=== PATIENT | female | born 1945 | race Caucasian/White ===

== ENCOUNTER 2018-12-11 13:34 | Inpatient (IN) ==
[2018-12-11] MEDS ORDERED: Gadolinium Contrast Agent (WT Based) IV PRN (18:15)
[2018-12-11] MEDS ORDERED: Isovue-370 500 ML BOTTLE IVP ONE ×2 (18:30→18:34)
--- NOTE | 2018-12-11 18:43 | Internal Med History&Physical ---
Date of Encounter: 12/12/18 Time of Encounter: 18:41 Internal Medicine - H&P: HPI Chief complaint: Transferred Admitted From: Long-term Nursing Facility Plans for Post Hospital Care: Transfer Correction Care History of present illness: Ms. 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 Patient was seen talking last around 6:30 in the morning by the nurse at [facility]. Around 11:00 patient was found unable to speak. CT did not show any hemorrhage but showed diffuse cerebral atrophy, chronic small vessel ischemic changes, large area of encephalomalacia in with right frontal and parietal lobes and left occipital lobe. Patient was out of TPA window. Tertiary stroke center was not called. She had a chest x-ray which was somewhat suspicion of pneumothorax but repeat x-ray did not demonstrate it. As per son patient did not have anything to eat since morning. Unclear whether she took her medication. He did not know her medications. No known allergy according to them. She was more or less bedbound due to left-sided paralysis from previous stroke which happened after neck vessels surgery in 2005. Patient was evaluated on the floor on transfer when she was completely altered and not arousable. Oxygen was put in with the mask. After about 15 minutes or so patient did become more arousable opening eyes spontaneously and somewhat able to follow command. History was obtained from family as well as Dr. Reynolds at [facility]. Patient would be transferred to [facility] for further care. Discussed with family about CODE STATUS. Previously she was full code however after discussion family decided not to do aggressive measures including chest compress or intubation and use other measures including BiPAP for respiratory distress but not intubate. Past Med Surg Social Fam HX - Past Medical History Medical history: CVA, diabetes, hyperlipidemia, hypertension, other Psychiatric history: depression - Past Surgical History Additional surgical history: Neck surgery for blocked artery - Social History Smoking Status: Never smoker Smokeless Tobacco Status: No Alcohol use: none Drug use: none Internal Medicine - H&P: Meds Amlodipine Besylate 10 mg PO DAILY 12/01/17 [History] Atorvastatin [Lipitor] 10 mg PO HS 12/01/17 [History] Cholecalciferol (Vitamin D3) [Vitamin D] 50,000 unit PO QMONTH 12/01/17 [History] Citalopram [CeleXA] 20 mg PO DAILY 12/01/17 [History] Clopidogrel [Plavix] 75 mg PO DAILY 12/01/17 [History] Cyanocobalamin (Vitamin B-12) [Vitamin B12] 1,000 mcg PO DAILY 12/01/17 [History] Ferrous Sulfate [Iron] 325 mg PO BID 12/01/17 [History] Gabapentin [Neurontin] 300 mg PO TID 12/01/17 [History] GlipiZIDE [Glipizide Xl] 5 mg PO DAILY 12/01/17 [History] Metoprolol [Lopressor] 50 mg PO BID 12/01/17 [History] metFORMIN [Glucophage] 500 mg PO BIDWM 12/01/17 [History] Acetaminophen [Tylenol] 650 mg PO Q6HR PRN 12/11/18 [History] Dextran 70/Hypromellose/Pf [Artificial Tears Drops] 1 each OP Q4H PRN 12/11/18 [History] MOM Conc [Milk of Magnesia Conc] 30 ml PO DAILY PRN 12/11/18 [History] Pantoprazole Sodium [Protonix] 20 mg PO DAILY 12/11/18 [History] Potassium Chloride [Klor-Con 10] 10 meq PO DAILY 12/11/18 [History] Allergy/AdvReac Type Severity Reaction Status Date / Time baclofen Allergy See Verified 12/11/18 20:05 Comments ROS unobtainable: due to mental status All Systems PM: A 10-system review of systems was performed and is negative for pertinent findings except as documented above in the HPI. - Constitutional Vitals: Temp Pulse Resp BP Pulse Ox 97.6 F 82 13 125/71 96 12/11/18 17:02 12/11/18 17:02 12/11/18 17:02 12/11/18 17:02 12/11/18 17:02 Exam: Constitutional: Vitals as noted. ENT : Oropharyngeal exam unremarkable. Rt neck scar, dry mucous membrane. Respiratory : coarse breath sound, No accessory muscle use. Cardiovascular : RRR, +S1, +S2. no murmur, gallop, rubs. No chest wall tenderness GI/Abdominal : Soft, Non-tender, Non-distended, no peritoneal signs. Musculoskeletal: Lt leg and arm spastic contracture, pulses palpable and symmetrical in UE/LE. Neurological: Initially not arousable but after putting on oxygen she became more awake. opened eye spontaneously, following commands somewhat. Lt LE and UE spastic. moving Rt hand able to squeeze hand on command. Skin: No skin rash, lesions or ulcers noted. Internal Med - H&P Results - Labs CBC & Chem 7: 12/12/18 06:28 12/12/18 04:59 - EKG Data -: EKG Interpreted by Myself (RBBB and LAFB with LVH signs) - Assessment and Plan (1) Altered mental state Current Visit: Yes Status: Acute Assessment and plan: Patient without hemorrhagic stroke on CT. Discussed case with neurology who recommended MRI and MRA along with rectal aspirin. Patient had a previous right neck surgery and unclear details about it would prevent getting MRI as per radiology. Labs were reviewed. UA without any signs of UTI. No indication for antibiotic for now. Monitor for fevers. We will get CTA head and neck along with CT chest given patient had abnormal ABG with hypoxia without significant acid-base disturbance. We will keep patient on high flow oxygen. We will consider antibiotic if any signs of infection. Patient on metformin at home for diabetes. Discussed possibility of TOMMIE with contrast. Family agreed to proceed. We will keep on IV fluids to avoid TOMMIE. Qualifiers: Altered mental status type: somnolence Qualified Code(s): R40.0 - Somnolence - Time Spent With Patient Total time spent is greater than 50% in coordination of care (as documented) at patient's floor/unit and/or counseling patient:
[2018-12-11] MEDS ORDERED: Naloxone 0.4 MG/ML INJ IVP PRN (18:46)
[2018-12-11 18:59] LABS: ABG Base Excess 4 mEq/L (-2 to 3); ABG HCO3 29 mEq/L (21-27); ABG Oxygen Saturation 86 % (95-98); ABG PCO2 43 mmHg (35-45); ABG PH 7.43 pH Units (7.32-7.45); ABG PO2 50 mmHg (85-104); ABG TCO2 30 mEq/L (20-26)
[2018-12-11] MEDS: Ringers Solution, Lactated 1,000 ML IVC SCH (21:29)
[2018-12-12] MEDS ORDERED: *HR* Metoprolol 5 MG/5 ML VIAL IVP ONE (02:18)
[2018-12-12 06:15] LABS: BUN/Creatinine Ratio 18 (6-26); Blood Urea Nitrogen 19 mg/dL (8-23); Calcium 9.7 mg/dL (8.6-10.3); Carbon Dioxide 26 mEq/L (23-29); Chloride 101 mEq/L (98-107); Glucose 228 mg/dL (70-105); Osmolality,Calculated 301 (280-300); Potassium 4.2 mEq/L (3.5-5.1); Sodium 141 mEq/L (136-145); eGFR For African Americans > 60 (> 60); eGFR For Non-African Americans 50 (> 60)
[2018-12-12] MEDS: Ampicillin/Sulbactam 1,500 MG in 0.9 % Sodium Chloride Mini Bag 100 ML IVPB SCH ×4 (06:21→22:48)
[2018-12-12 06:40] LABS: ABG Base Excess 2 mEq/L (-2 to 3); ABG HCO3 27 mEq/L (21-27); ABG Oxygen Saturation 97 % (95-98); ABG PCO2 42 mmHg (35-45); ABG PH 7.41 pH Units (7.32-7.45); ABG PO2 92 mmHg (85-104); ABG TCO2 28 mEq/L (20-26)
[2018-12-12 07:02] LABS: Basophils % 0.1 %; Eosinophils % 0.1 %; Hematocrit 45.3 % (35.3-44.9); Hemoglobin 14.8 g/dL (11.5-15.4); Immature Granulocytes % 0.6 % (0-4); Lymphocytes # 2.3 K/mcL (0.6-4.6); Lymphocytes % 13.3 %; Mean Corpuscular HGB Conc 32.7 g/dL (31.6-35.5); Mean Corpuscular Hemoglobin 30.3 pg (28.0-33.3); Mean Corpuscular Volume 92.8 fL (83.0-100.0); Mean Platelet Volume 10.3 fL (9.4-12.4); Monocytes % 5.5 %; Platelet Count 250 K/mcL (140-400); Red Blood Count 4.88 M/mcL (3.82-4.97); Red Cell Distribution Width 13.1 % (11.5-14.5); Segmented Neutrophils % 80.4 %; White Blood Count 17.2 K/mcL (4.3-11.1)
[2018-12-12 07:15] LABS: Neutrophils # 13.8 K/mcL (1.6-8.9)
--- NOTE | 2018-12-12 08:15 | Internal Med Progress Note ---
Hospitalist Progress Note - Encounter Date of Encounter: 12/12/18 Time of Encounter: 08:02 - Subjective Interval History: Patient seen and examined this morning at bedside. No acute overnight events. Patient had fevers overnight. Patient not alert and arousable only with pain. Not following commands unable to offer any complaints. Sinus tachycardia on phototypesetting equipment monitor. - Exam Vitals: Temp Pulse Resp BP Pulse Ox 100.2 F H 107 20 176/99 97 12/12/18 07:40 12/12/18 07:40 12/12/18 07:40 12/12/18 07:40 12/12/18 07:40 Exam: Constitutional: Vitals as noted. Respiratory : coarse breath sound, No accessory muscle use. Cardiovascular : tachycardic, +S1, +S2. no murmur, gallop, rubs. GI/Abdominal : Soft, Non-tender, Non-distended, no peritoneal signs. Musculoskeletal: Lt leg and arm spastic contracture, pulses palpable and symmetrical in UE/LE. Neurological: Arousable with pain and opening eyes spontaneously after, not fo llowing commands. Skin: No skin rash noted. - Assessment and Plan (1) Altered mental state Current Visit: Yes Status: Acute - Summary of Assessment and Plan Summary of Assessment and Plan: Assessment Acute Altered mental status Aphasia Aspiration pneumonia Chronic DM HTN HLD Large CVA with residual lt weakness Plan - Patient transferred consent for incision stroke. Found unresponsive with hypoxia. CT shows right lower lobe consolidation with possible aspiration pneumonia. Stared on Unasyn. ABG better. Will stop bipap and monitor oxygenation. - CT without any hemorrhagic stroke. Discussed case with neurology who recommended MRI and MRA however wtih previous right neck surgery and unclear details about it would prevent getting MRI as per radiology. - Had CTA of head neck without evidence of acute ischemic or hemorrhagic stroke. Has Rt carotid occlusion with extensive encephalomalacia. No stenois of cervical vasculature. - Neurology consulted. Recommendation appreciated - c/w IV fluids maintainence. Start sliding scale inulin and accucheck - Prognosis guarded. Will get swallow evaluation when becomes more alert. - Allow permissive HTN. Sinus tachy likely related to aspiration. However possible BB withdrawal. Start lopressor IV. Internal Medicine: Result - Labs CBC & Chem 7: 12/12/18 06:28 12/12/18 04:59 Labs: Short CBC 12/12/18 Range/Units 06:28 WBC 17.2 H D (4.3-11.1) K/mcL Hgb 14.8 (11.5-15.4) g/dL Hct 45.3 H (35.3-44.9) % Plt Count 250 (140-400) K/mcL Neutrophils # 13.8 H (1.6-8.9) K/mcL BMP 12/12/18 04:59 Sodium 141 Potassium 4.2 Chloride 101 Carbon Dioxide 26 BUN 19 Creatinine 1.07 Glucose 228 H Calcium 9.7 - ABG Interpretation ABG results: ABG ABG pH 7.41 pH Units (7.32-7.45) 12/12/18 06:37 ABG pCO2 42 mmHg (35-45) 12/12/18 06:37 ABG pO2 92 mmHg (85-104) 12/12/18 06:37 ABG O2 Saturation 97 % (95-98) 12/12/18 06:37 - Impressions Impressions Neck CTA 12/11/18 18:30 IMPRESSION: CT head: Extensive encephalomalacia within the right anterior circulation, with associated ex vacuo dilatation of the right lateral ventricle. Additional areas of encephalomalacia within left posterior temporal lobe, and left occipital lobe compatible with previous area of infarcts. Chronic lacunar infarcts within bilateral basal ganglia and bilateral cerebellum. No convincing CT evidence of acute infarct. No convincing CT evidence of acute intracranial hemorrhage. Moderate to severe ventricle dilatation is nonspecific but likely related to extensive multifocal areas of encephalomalacia. 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 Occlusion of the right middle cerebral artery, and right anterior cerebral artery. This corresponds with extensive area of encephalomalacia from previous infarct. This is likely a chronic finding. Moderate multifocal stenosis involving the left intracranial internal carotid artery, with [id number] multifocal stenosis involving the anterior cerebral artery on the left, left middle cerebral artery, and bilateral posterior cerebral arteries. No focal occlusion identified within the remainder of the intracranial vasculature. CTA neck No high-grade stenosis or focal occlusion involving the cervical vasculature. Evaluation of the right carotid bifurcation is limited due to extensive surgical clips. However, within this limitation, no focal occlusion or significant stenosis is suspected. D/ / 12/11/2018 20:33:32 Flo Ferrell MD / branden Interpreting Provider: Flo Ferrell MD Head CTA 12/11/18 18:34 IMPRESSION: CT head: Extensive encephalomalacia within the right anterior circulation, with associated ex vacuo dilatation of the right lateral ventricle. Additional areas of encephalomalacia within left posterior temporal lobe, and left occipital lobe compatible with previous area of infarcts. Chronic lacunar infarcts within bilateral basal ganglia and bilateral cerebellum. No convincing CT evidence of acute infarct. No convincing CT evidence of acute intracranial hemorrhage. Moderate to severe ventricle dilatation is nonspecific but likely related to extensive multifocal areas of encephalomalacia. 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 Occlusion of the right middle cerebral artery, and right anterior cerebral artery. This corresponds with extensive area of encephalomalacia from previous infarct. This is likely a chronic finding. Moderate multifocal stenosis involving the left intracranial internal carotid artery, with [id number] multifocal stenosis involving the anterior cerebral artery on the left, left middle cerebral artery, and bilateral posterior cerebral arteries. No focal occlusion identified within the remainder of the intracranial vasculature. CTA neck No high-grade stenosis or focal occlusion involving the cervical vasculature. Evaluation of the right carotid bifurcation is limited due to extensive surgical clips. However, within this limitation, no focal occlusion or significant stenosis is suspected. D/ / 12/11/2018 20:33:32 Flo Ferrell MD / branden Interpreting Provider: Flo Ferrell MD Chest CT 12/11/18 18:59 IMPRESSION: 1. Consolidation the right lower lobe with evidence for fluid within the right lower lobe bronchus and segmental branches 2. No pneumothorax 3. No pleural effusion D/ / Tu Cutler MD / Tu Cutler MD Interpreting Provider: Tu Cutler MD Consult Discharge Plan - Plan Referrals: Damaris Boudreaux MD [Primary Care Provider] - (1) Altered mental state Qualifiers: Altered mental status type: somnolence Qualified Code(s): R40.0 - Eliz
[2018-12-12] MEDS ORDERED: Dextrose Gel 15 GM/37.5 ML TUBE PO PRN ×2 (08:55)
[2018-12-12] MEDS ORDERED: D5% in Water 1,000 ML IVC PRN (08:55)
[2018-12-12] MEDS ORDERED: *HR* Dextrose 50 % in Water (Syg) 50 ML SYRINGE IVP PRN (08:55)
--- NOTE | 2018-12-12 09:52 | Neurology - Consult Note ---
<Davis David J - Last Filed: 12/12/18 16:28> Date of Encounter: 12/12/18 Time of Encounter: 09:42 Assessment and Plan (1) Aphasia due to acute stroke Current Visit: No Status: Acute Presents with a sudden onset of severe aphasia Patient's mental state is altered and she is unable to participate in exam CT of the head on 12/11/18 reveals no acute intracranial abnormality. Finding diffuse cerebral atrophy with chronic small vessel ischemic disease and a large area of encephalomalacia involving the right frontal and parietal lobes from p rior infarct. Additionally there is encephalomalacia involving the left occipital lobe and cerebellar hemispheric and from prior infarct. 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 There is moderate multifocal stenosis involving the left intracranial internal carotid artery and [id number] multifocal stenosis involving the anterior cerebral artery, left middle sternal artery and bilateral posterior cerebral arteries. The CT angiogram of the neck shows no high-grade stenosis or focal occlusion involving the cervical vasculature. Evaluation of the right carotid bifurcation is limited due to extensive surgical clips. Ultimately MRI of the brain would be beneficial for further evaluation of an acute CVA. Neurological exam is complicated by altered mental state however, she has chronic left hemiparesis S/P CVA in 2005. On exam today she is extremely somnolent and unable to follow commands. However, she will move her right arm against gravity to painful stimuli and will move her right leg in a horizontal plane painful stimuli. She has chronic contractures of the left hand and left foot. Of note she also has positive Babinski's bilaterally. PLAN: Unable to obtain MRI d/t vascular clipping in the Rt cervical carotid arteries Recommend repeating CT head in the a.m. Agree with EEG evaluation Recommend echocardiogram Continue Lipitor and add rectal aspirin Goal BP less than 160 Continue frequent neurological assessments as per stroke protocol (2) Altered mental state Current Visit: Yes Status: Acute Qualifiers: Altered mental status type: somnolence Qualified Code(s): R40.0 - Somnolence History of Present Illness Chief complaint: acute CVA HPI: Ms. Curry is a 73 year old female with a PMH of DM, HTN, CVA in with residual left-sided paralysis. Her last known well was approximately 6:30 AM yesterday morning. At around 11 AM she was found to be severely aphasic and unable to speak. Given these findings there is concern for CVA. A CT of the head did not show any acute intracranial hemorrhage, mass effect or midline shift revealed only chronic small vessel ischemic changes and a large area of encephalomalacia in the right frontal and parietal lobes and left occipital lobe. Unfortunately, she was outside of the TPA window time of arrival to the ED. At the time of my assessment this morning the patient is very somnolent and arousable only to painful stimuli. She remains unable to speak or engage in conversation and is unable to follow commands. There is no family at bedside at the moment. Given her symptoms are certainly concerning for an acute CVA. Neurology will continue to follow for evaluation of stroke. Of note, she does have service criteria times [address] of the chest suggest pneumonia. She is being managed per the primary team. Past Med Surg Social Fam HX - Past Medical History Medical history: CVA, diabetes, hyperlipidemia, hypertension, other Additional medical history: Depression. CAD. Anemia. Neuropathy. Vitamin D deficiency. Psychiatric history: depression - Past Surgical History Additional surgical history: Neck surgery for blocked artery - Social History Smoking Status: Never smoker Smokeless Tobacco Status: No Alcohol use: none Drug use: none Medications and Allergies Atorvastatin [Lipitor] 10 mg PO HS 12/01/17 [History] Cholecalciferol (Vitamin D3) [Vitamin D] 50,000 unit PO QWEEK 12/01/17 [History] Clopidogrel [Plavix] 75 mg PO DAILY 12/01/17 [History] Cyanocobalamin (Vitamin B-12) [Vitamin B12] 1,000 mcg PO DAILY 12/01/17 [History] Ferrous Sulfate [Iron] 325 mg PO BID 12/01/17 [History] Gabapentin [Neurontin] 300 mg PO TID 12/01/17 [History] Metoprolol [Lopressor] 50 mg PO BID 12/01/17 [History] metFORMIN [Glucophage] 500 mg PO BIDWM 12/01/17 [History] Acetaminophen [Tylenol] 650 mg PO Q6HR PRN 12/11/18 [History] Dextran 70/Hypromellose/Pf [Artificial Tears Drops] 1 each OP Q4H PRN 12/11/18 [History] MOM Conc [Milk of Magnesia Conc] 30 ml PO DAILY PRN 12/11/18 [History] Pantoprazole Sodium [Protonix] 20 mg PO DAILY 12/11/18 [History] Potassium Chloride [Klor-Con 10] 10 meq PO DAILY 12/11/18 [History] Amlodipine Besylate 10 mg PO DAILY 12/12/18 [History] Citalopram Hydrobromide [Citalopram HBr] 15 mg PO DAILY 12/12/18 [History] GlipiZIDE [Glucotrol] 5 mg PO BIDWM 12/12/18 [History] Allergy/AdvReac Type Severity Reaction Status Date / Time baclofen Allergy See Verified 12/11/18 20:05 Comments ROS unobtainable: due to mental status All Systems: The remainder of the systems were reviewed and are negative Physical Examination - Vital Signs Vital Signs: Initial Vital Signs Temp Pulse Resp BP Pulse Ox 97.6 F 82 13 125/71 96 12/11/18 17:02 12/11/18 17:02 12/11/18 17:02 12/11/18 17:02 12/11/18 17:02 - Exam Exam: Examination: Complicated by altered mental state General Examination: *CONSTITUTIONAL: Somnolent, no acute distress *GENERAL APPEARANCE OF PATIENT ill-appearing elderly female *EYES: pupils equal, round, reactive to light and accommodation, conjunctiva clear *CARDIOVASCULAR no peripheral edema, distal temperature normal, dorsalis pedis pulses normal. See vital signs Musculoskeletal: *GAIT AND STATION deferred *ASSESSMENT OF MUSCLE STRENGTH IN THE UPPER AND LOWER EXTREMITIES left- sided hemiparesis which is a chronic deficit from prior CVA in 2005. She will move RUE against gravity with painful stimulus, but her strength 3/5, she will move RLE in a horizontal plane with painful stimulus motor strength 2/5 *MUSCLE TONE IN THE UPPER AND LOWER EXTREMITIES normal. No abnormal movements, fasciculations or atrophy identified. Neurological: *ORIENTATION severely somnolent and arousable to painful stimuli only. *LANGUAGE FUNCTION severe expressive aphasia *CN II optic fundi were normal, no papilledema noted. *CN III,IV, pupils are 3 mm equally bilaterally, however the left pupil does not constrict to light or accommodation. Doll's eyes are intact, unable to assess extraocular movements *CN V shows normal sensation and jaw opens symmetrically. *CN VII shows normal facial movement symmetrically, upper and lower bilaterally. *REFLEXES: deep tendon reflexes were grade 1/4 in all muscle groups of the right arm and right leg, areflexic in the left arm and left leg in all muscle groups with positive Babinski's reflex on bilateral feet *CEREBELLAR TESTING normal finger to nose, heel/knee/cerda *PAIN LEVEL 0/10 Results - Laboratory Findings CBC and BMP: 12/12/18 06:28 12/12/18 04:59 Abnormal lab findings: Abnormal lab results WBC 17.2 K/mcL (4.3-11.1) H D 12/12/18 06:28 Hct 45.3 % (35.3-44.9) H 12/12/18 06:28 13.8 K/mcL (1.6-8.9) H 12/12/18 06:28 ABG pO2 50 mmHg (85-104) L* 12/11/18 18:47 ABG HCO3 29 mEq/L (21-27) H 12/11/18 18:47 ABG Total CO2 28 mEq/L (20-26) H 12/12/18 06:37 ABG O2 Saturation 86 % (95-98) L 12/11/18 18:47 ABG Base Excess 4 mEq/L (-2 to 3) H 12/11/18 18:47 Est GFR (Non-Af Amer) 50 (> 60) L 12/12/18 04:59 Glucose 228 mg/dL (70-105) H 12/12/18 04:59 POC Glucose 135 mg/dL (70-99) H 12/11/18 17:17 301 (280-300) H 12/12/18 04:59 - Diagnostic Findings Additional findings: CT/CT chest w con IMPRESSION: 1. Consolidation the right lower lobe with evidence for fluid within the right lower lobe bronchus and segmental branches 2. No pneumothorax 3. No pleural effusion CT/CT angio head IMPRESSION: CT head: Extensive encephalomalacia within the right anterior circulation, with associated ex vacuo dilatation of the right lateral ventricle. Additional areas of encephalomalacia within left posterior temporal lobe, and left occipital lobe compatible with previous area of infarcts. Chronic lacunar infarcts within bilateral basal ganglia and bilateral cerebellum. No convincing CT evidence of acute infarct. No convincing CT evidence of acute intracranial hemorrhage. Moderate to severe ventricle dilatation is nonspecific but likely related to extensive multifocal areas of encephalomalacia. 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 Occlusion of the right middle cerebral artery, and right anterior cerebral artery. This corresponds with extensive area of encephalomalacia from previous infarct. This is likely a chronic finding. Moderate multifocal stenosis involving the left intracranial internal carotid artery, with [id number] multifocal stenosis involving the anterior cerebral artery on the left, left middle cerebral artery, and bilateral posterior cerebral arteries. No focal occlusion identified within the remainder of the intracranial vasculature. CTA neck No high-grade stenosis or focal occlusion involving the cervical vasculature. Evaluation of the right carotid bifurcation is limited due to extensive surgical clips. However, within this limitation, no focal occlusion or significant stenosis is suspected. Consult Discharge Plan - Plan Referrals: Damaris Boudreaux MD [Primary Care Provider] - <Sharon Wilkinson I - Last Filed: 12/12/18 16:48> Date of Encounter: 12/12/18 Assessment and Plan (1) Aphasia due to acute stroke Current Visit: No Status: Acute I have personally performed a face to face diagnostic evaluation, including HPI, EXAM, which is included in the Assesment and plan, which was discussed with Davis David CNP, I agree with the above outlined documentation. Should with a history of previous stroke with significant encephalomalacia in her right hemisphere Now with unresponsiveness, suspect she may have a new infarct perhaps could be in the brain this time but at the same time she do not have much cortical reserve and for brain is already changed from her previous right MCA infarct, Currently she is on antibiotics as well as on fluids, suggest conservative treatment considering her breathing seems to be significantly affected. Patient is currently DNR CCA, keep patient comfortable Continue on rectal aspirin continue blood pressure monitoring keep it stable Discussed with the family present at bedside , informed Prognosis is not good Sharon Wilkinson MD. NeurologyI (2) Altered mental state Current Visit: Yes Status: Acute Qualifiers: Altered mental status type: somnolence Qualified Code(s): R40.0 - Somnolence History of Present Illness HPI: Ms. Curry is a 73 year old female All Systems: The remainder of the systems were reviewed and are negative Physical Examination - Vital Signs Vital Signs: Initial Vital Signs Temp Pulse Resp BP Pulse Ox 97.6 F 82 13 125/71 96 12/11/18 17:02 12/11/18 17:02 12/11/18 17:02 12/11/18 17:02 12/11/18 17:02 Results - Laboratory Findings CBC and BMP: 12/12/18 06:28 12/12/18 04:59 Abnormal lab findings: Abnormal lab results WBC 17.2 K/mcL (4.3-11.1) H D 12/12/18 06:28 Hct 45.3 % (35.3-44.9) H 12/12/18 06:28 13.8 K/mcL (1.6-8.9) H 12/12/18 06:28 ABG pO2 50 mmHg (85-104) L* 12/11/18 18:47 ABG HCO3 29 mEq/L (21-27) H 12/11/18 18:47 ABG Total CO2 28 mEq/L (20-26) H 12/12/18 06:37 ABG O2 Saturation 86 % (95-98) L 12/11/18 18:47 ABG Base Excess 4 mEq/L (-2 to 3) H 12/11/18 18:47 Est GFR (Non-Af Amer) 50 (> 60) L 12/12/18 04:59 Glucose 228 mg/dL (70-105) H 12/12/18 04:59 POC Glucose 241 mg/dL (70-99) H 12/12/18 05:04 301 (280-300) H 12/12/18 04:59
[2018-12-12] MEDS: *HR* Metoprolol 5 MG/5 ML VIAL IVP SCH ×3 (11:58→22:49)
[2018-12-12] MEDS ORDERED: Ampicillin/Sulbactam 1,500 MG in 0.9 % Sodium Chloride Mini Bag 100 ML IVPB SCH (12:00)
[2018-12-12] MEDS: Insulin LISPRO 300 UNITS/3 ML VIAL SQ SCH ×2 (12:37→17:42)
[2018-12-12] MEDS: Ringers Solution, Lactated 1,000 ML IVC SCH (12:43)
--- NOTE | 2018-12-12 16:40 | Electrocardiograph Report ---
[address] [place] [address] Test Date: 2018-12-12 Pat Name: Dora Curry Department: 110 Room: 2N15 Gender: F Contact [employer] Helper: : 1945 Requested By: Walt Hamilton Order Number: [id number] Reading MD: Surekha Mendez Measurements Intervals [place]bler Rate: 105 P: 55 ID: [id number] QRS: -74 QRSD: 117 T: 64 QT: 372 QTc: 433 Interpretive Statements SINUS TACHYCARDIA INCOMPLETE RIGHT BUNDLE BRANCH BLOCK LEFT ANTERIOR FASCICULAR BLOCK POSSIBLE LEFT VENTRICULAR HYPERTROPHY Electronically Signed On 12-12-2018 16:39:07 EDT by Surekha Mendez
[2018-12-12] MEDS ORDERED: Ondansetron 4 MG/2 ML VIAL IVP PRN (20:31)
[2018-12-13] MEDS: Insulin LISPRO 300 UNITS/3 ML VIAL SQ SCH ×4 (00:36→18:42)
[2018-12-13 05:31] LABS: Basophils % 0.3 %; Eosinophils % 0.1 %; Hematocrit 44.6 % (35.3-44.9); Hemoglobin 14.4 g/dL (11.5-15.4); Immature Granulocytes % 0.7 % (0-4); Lymphocytes % 21.4 %; Mean Corpuscular HGB Conc 32.3 g/dL (31.6-35.5); Mean Corpuscular Hemoglobin 30.6 pg (28.0-33.3); Mean Corpuscular Volume 94.9 fL (83.0-100.0); Mean Platelet Volume 9.5 fL (9.4-12.4); Monocytes # 1.1 K/mcL (0.0-1.3); Monocytes % 7.7 %; Neutrophils # 9.7 K/mcL (1.6-8.9); Platelet Count 297 K/mcL (140-400); Segmented Neutrophils % 69.8 %; White Blood Count 13.9 K/mcL (4.3-11.1)
[2018-12-13 05:44] LABS: BUN/Creatinine Ratio 17 (6-26); Blood Urea Nitrogen 16 mg/dL (8-23); Carbon Dioxide 25 mEq/L (23-29); Chloride 105 mEq/L (98-107); Glucose 191 mg/dL (70-105); Osmolality,Calculated 302 (280-300); Potassium 3.2 mEq/L (3.5-5.1); Sodium 143 mEq/L (136-145); eGFR For African Americans > 60 (> 60); eGFR For Non-African Americans 60 (> 60)
[2018-12-13] MEDS: Ampicillin/Sulbactam 1,500 MG in 0.9 % Sodium Chloride Mini Bag 100 ML IVPB SCH ×3 (06:28→18:41)
[2018-12-13] MEDS: *HR* Metoprolol 5 MG/5 ML VIAL IVP SCH ×3 (06:28→18:15)
--- NOTE | 2018-12-13 13:03 | Neurology Progress Note ---
<Davis David - Last Filed: 12/13/18 13:00> Date of Encounter: 12/13/18 Time of Encounter: 13:00 Assessment and Plan (1) Aphasia due to acute stroke Current Visit: No Status: Acute Presents with sudden onset of severe aphasia and decreased level of consciousness. Clinical, she has not had any noticeable improvement in her symptoms overnight. CT of the head yesterday negative for an acute infarct. EEG did not identify any seizure activity. Today she continues to be lethargic, severely aphasic and in respiratory distress requiring high oxygen support. As noted previously, she has had a rather large infarct in the right hemisphere and the CT does reveal significant encephalomalacia. A repeat CT of the head was completed this morning which did not identify any acute pathology revealing only chronic findings. Given the respiratory failure with aspiration PNA, coupled with the sever aphasia, increase oral secretions and suspicion for aspiration her prognosis is poor overall. This has been discussed with the family. Recommendations are to continue with neurological assessments per protocol, continue rectal aspirin daily, keep SBP less than 160. Recommending palliative care consultation. Neurology will continue to follow. (2) Altered mental state Current Visit: Yes Status: Acute Qualifiers: Altered mental status type: somnolence Qualified Code(s): R40.0 - Somnolence Subjective Principal diagnosis: Aphagia due to acute stroke Interval history: Patient was seen in follow-up at bedside with concerns for an acute CVA. She has a history of previous stroke with significant encephalomalacia in the right hemisphere. On admission she was totally aphasic and unresponsive and there is concerns for a new infarct. Also, she was found to have aspiration pneumonia and sepsis for which she is being treated by the primary team. The chart was reviewed today, the patient was seen and examined at the bedside. Clinically, she has not had any noticeable improvement overnight and this morning she continues to be somnolent and difficult to arouse. However, she was somewhat arousable with noxious stimulus. Nevertheless she continues to be severely aphasic and does not follow commands. Her case was discussed with her son and [id number] as well as other family were present and they were informed that in all likelihood the prognosis is not favorable. A repeat CT of the head was obtained today which did not identify any acute infarct or acute intracranial abnormalities. Plan of care at this time includes continuing with rectal aspirin, close blood pressure monitoring and close monitoring of the patient's neurological status. Plan of care discussed with the family and they are in agreement. They do not have any further questions regarding her care. Objective - Constitutional Vitals: Temp Pulse Resp BP Pulse Ox 97.0 F L 77 26 170/95 88 12/13/18 11:51 12/13/18 11:51 12/13/18 11:51 12/13/18 11:51 12/13/18 11:51 Exam: Examination: Severely limited by patient's altered mental state General Examination: *CONSTITUTIONAL: Continues to be somnolent, no acute distress *GENERAL APPEARANCE OF PATIENT overall she is an ill appearing elderly female *EYES: pupils equal, round, reactive to light and accommodation, conjunctiva clear *CARDIOVASCULAR: no peripheral edema, distal temperature normal, dorsalis pedis pulses normal. Refer to vital signs * MUSCULOSKELETAL: *GAIT AND STATION: Deferred *ASSESSMENT OF MUSCLE STRENGTH IN THE UPPER AND LOWER EXTREMITIES chronic left-sided hemiparesis from prior CVA. She will move RUE and RLE to noxious stimulus but is only able to move each limb in a horizontal plane with motor strength of 2/5 *MUSCLE TONE IN THE UPPER AND LOWER EXTREMITIES normal. No abnormal movements, fasciculations or atrophy identified. Neurological: *ORIENTATION somnolent, disoriented to person, place, time, situation *LANGUAGE AND FUNCTION severe aphasia *ATTENTION AND CONCENTRATION DOES not follow commands and is not attentive. I am unable to reorient the patient *LANGUAGE FUNCTION and significant severe aphasia *MENTAL attention span and concentration are poor *CN II optic fundi were normal, no papilledema noted. *CN III,IV, PERRLA, doll's eyes intact *CN XI normal strength in the sternocleidomastoid muscles, when awake she will follow me throughout the room by turning her head from [id number] *SENSORY EXAMINATION appears to be aware of painful stimuli to the right upper and lower extremity she will move them with painful stimulus. Sensation appears to be diminished in the left side which is likely a chronic finding *REFLEXES: DTRs were grade 1/4 in all muscle groups in the right arm and right leg but areflexic in the left arm and left leg in all muscle groups. She is positive for bilateral Babinski's Results - Laboratory Findings CBC and BMP: 12/13/18 05:09 12/13/18 05:09 Abnormal lab findings: Abnormal lab results WBC 13.9 K/mcL (4.3-11.1) H 12/13/18 05:09 Hct 45.3 % (35.3-44.9) H 12/12/18 06:28 9.7 K/mcL (1.6-8.9) H 12/13/18 05:09 ABG pO2 50 mmHg (85-104) L* 12/11/18 18:47 ABG HCO3 29 mEq/L (21-27) H 12/11/18 18:47 ABG Total CO2 28 mEq/L (20-26) H 12/12/18 06:37 ABG O2 Saturation 86 % (95-98) L 12/11/18 18:47 ABG Base Excess 4 mEq/L (-2 to 3) H 12/11/18 18:47 Potassium 3.2 mEq/L (3.5-5.1) L 12/13/18 05:09 Est GFR (Non-Af Amer) 50 (> 60) L 12/12/18 04:59 Glucose 191 mg/dL (70-105) H 12/13/18 05:09 POC Glucose 195 mg/dL (70-99) H 12/13/18 11:57 302 (280-300) H 12/13/18 05:09 Consult Discharge Plan - Plan Referrals: Damaris Boudreaux MD [Primary Care Provider] - <Sharon Wilkinson I - Last Filed: 12/13/18 16:34> Date of Encounter: 12/13/18 Assessment and Plan (1) Aphasia due to acute stroke Current Visit: No Status: Acute Patient remain unresponsive though today she does open the eyes briefly on stimuli but remains unresponsive and no purposeful movement noted Repeat CT scan did not reveal any new abnormality Concerning overall suggest supportive care Discussed and explained to the family that her prognosis is poor Sharon Wilkinson MD (2) Altered mental state Current Visit: Yes Status: Acute Qualifiers: Qualified Code(s): R40.0 - Somnolence Objective - Constitutional Vitals: Temp Pulse Resp BP Pulse Ox 98.1 F 97 26 197/110 98 12/13/18 15:50 12/13/18 15:50 12/13/18 15:50 12/13/18 15:50 12/13/18 15:50 Results - Laboratory Findings CBC and BMP: 12/13/18 05:09 12/13/18 05:09 Abnormal lab findings: Abnormal lab results WBC 13.9 K/mcL (4.3-11.1) H 12/13/18 05:09 Hct 45.3 % (35.3-44.9) H 12/12/18 06:28 9.7 K/mcL (1.6-8.9) H 12/13/18 05:09 ABG pO2 50 mmHg (85-104) L* 12/11/18 18:47 ABG HCO3 29 mEq/L (21-27) H 12/11/18 18:47 ABG Total CO2 28 mEq/L (20-26) H 12/12/18 06:37 ABG O2 Saturation 86 % (95-98) L 12/11/18 18:47 ABG Base Excess 4 mEq/L (-2 to 3) H 12/11/18 18:47 Potassium 3.2 mEq/L (3.5-5.1) L 12/13/18 05:09 Est GFR (Non-Af Amer) 50 (> 60) L 12/12/18 04:59 Glucose 191 mg/dL (70-105) H 12/13/18 05:09 POC Glucose 195 mg/dL (70-99) H 12/13/18 11:57 302 (280-300) H 12/13/18 05:09
--- NOTE | 2018-12-13 13:49 | Palliative - Consult Note ---
Date of Encounter: 12/15/18 Time of Encounter: 13:30 - Assessment and Plan (1) Goals of care, counseling/discussion Current Visit: Yes Status: Acute Assessment and plan: 40 minutes meeting with pt's son Lyssa (MPOA), [id number], grand-son. Discussed current medical condition, trajectory of illness, overall poor prognosis. Discussed that pt is in respiratory failure with aspiration PNA, severe aphasia, increase oral secretions and suspicion for aspiration, her prognosis prognosis is hours to days. Family was appropriately emotional. Son would like all to be done except intubation, per patient's own wishes. Explained that CPR will be appropriopriate as it will result in added suffering and prolonging the dying process. Son was not able to give a final decision about CPR. Advised Lyssa to notify all family of pt's condition as pt has 6 children. Plan: Patient is DO NOT INTUBATE, but remains FULL CODE. Recommend to address code status further as patient appears more imminent Will order some comfort medication to be used when patient is in distress and family agreeable. Secretions: Glycopyrrolate 0.2mg q8hr prn Morphine SL 5 mg q1 hr prn for dyspnea Anxiety: Ativan 1mg q1 hr prn (2) Dyspnea Current Visit: Yes Status: Acute Assessment and plan: Patient shows signs of aspiration, with gurgling sounds, tachypnea and accessory muscle use on vanc and zosyn on nonrebreather mask Family still hopeful and wants to continue all aggressive treatment, except intubation. Morphine and Ativan prn ordered for respiratory distress, once family agreeable. Per patient's known wishes, DO NOT INTUBATE. Qualifiers: Dyspnea type: acute respiratory distress Qualified Code(s): R06.03 - Acute respiratory distress (3) Copious oral secretions Current Visit: Yes Status: Acute Assessment and plan: Glycopyrrolate 0.2mg prn for secretions (4) Palliative care encounter Current Visit: Yes Status: Acute (5) Aphasia due to acute stroke Current Visit: No Status: Acute (6) Altered mental state Current Visit: Yes Status: Acute Qualifiers: Altered mental status type: somnolence Qualified Code(s): R40.0 - Somnolence Palliative-CN HPI - Data of Consult Patient: new to practice Consult date: 12/13/18 Requesting Physician: Jewel Wright Primary Care Provider: Damaris Boudreaux MD - Consult Narrative Palliative Care/Comfort Measures: Palliative care Reason for consult: Goals of care History of present illness: Ms. 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 Patient is [facility] resident, where she was found unable to speak 3 and half hours after the last know normal time. CT head did not show any hemorrhage but showed diffuse cerebral atrophy, chronic small vessel ischemic changes, large area of encephalomalacia in with right frontal and parietal lobes and left occipital lobe. Patient was out of TPA window. Patient was admitted for management of stroke. Patient is worsening, continues to be lethargic, severely aphasic and in respiratory distress requiring high oxygen support. Palliative care consult for GOC discussion. Today pt was lethargic, on non-rebreather mask, tachypneic and using accessory muscles. Opens eyes transiently to verbal stimuli. At her baseline, pt is b edbound due to left-sided paralysis from previous stroke which happened after neck vessels surgery in 2005. CC: Jewel Wright - Time Spent with Patient Time: Total time spent is greater than 50% in coordination of care (as documented) at patient's floor/unit and/or counseling patient: Time with patient: 75 minutes Past Med Surg Social Fam HX - Past Medical History Medical history: CVA, diabetes, hyperlipidemia, hypertension, other Additional medical history: Depression. CAD. Anemia. Neuropathy. Vitamin D deficiency. Psychiatric history: depression - Past Surgical History Additional surgical history: Neck surgery for blocked artery - Social History Smoking Status: Never smoker Smokeless Tobacco Status: No Alcohol use: none Drug use: none Medications and Allergies Atorvastatin [Lipitor] 10 mg PO HS 12/01/17 [History] Cholecalciferol (Vitamin D3) [Vitamin D] 50,000 unit PO QWEEK 12/01/17 [History] Clopidogrel [Plavix] 75 mg PO DAILY 12/01/17 [History] Cyanocobalamin (Vitamin B-12) [Vitamin B12] 1,000 mcg PO DAILY 12/01/17 [History] Ferrous Sulfate [Iron] 325 mg PO BID 12/01/17 [History] Gabapentin [Neurontin] 300 mg PO TID 12/01/17 [History] Metoprolol [Lopressor] 50 mg PO BID 12/01/17 [History] metFORMIN [Glucophage] 500 mg PO BIDWM 12/01/17 [History] Acetaminophen [Tylenol] 650 mg PO Q6HR PRN 12/11/18 [History] Dextran 70/Hypromellose/Pf [Artificial Tears Drops] 1 each OP Q4H PRN 12/11/18 [History] MOM Conc [Milk of Magnesia Conc] 30 ml PO DAILY PRN 12/11/18 [History] Pantoprazole Sodium [Protonix] 20 mg PO DAILY 12/11/18 [History] Potassium Chloride [Klor-Con 10] 10 meq PO DAILY 12/11/18 [History] Amlodipine Besylate 10 mg PO DAILY 12/12/18 [History] Citalopram Hydrobromide [Citalopram HBr] 15 mg PO DAILY 12/12/18 [History] GlipiZIDE [Glucotrol] 5 mg PO BIDWM 12/12/18 [History] Allergy/AdvReac Type Severity Reaction Status Date / Time baclofen Allergy See Verified 12/11/18 20:05 Comments ROS unobtainable: due to mental status Palliative Care-Exam - Constitutional Vitals: Temp Pulse Resp BP Pulse Ox 97.0 F L 77 26 170/95 88 12/13/18 11:51 12/13/18 11:51 12/13/18 11:51 12/13/18 11:51 12/13/18 11:51 Exam: Constitutional: lethargic, in moderate distress ENT : Oropharyngeal exam unremarkable. Rt neck scar, dry mucous membrane. Respiratory : coarse breath sound, accessory muscle use. Cardiovascular : RRR, +S1, +S2. no murmur, gallop, rubs. No chest wall tenderness GI/Abdominal : Soft, Non-tender, Non-distended, no peritoneal signs. Musculoskeletal: Lt leg and arm spastic contracture, pulses palpable and symmetrical in UE/LE. Neurological: opened eye spontaneously, not following commands. Lt LE and UE spastic. Skin: No skin rash, lesions or ulcers noted. Internal Medicine - CN: Reslt - Labs CBC & Chem 7: 12/13/18 05:09 12/13/18 05:09 Labs: Short CBC 12/13/18 Range/Units 05:09 WBC 13.9 H (4.3-11.1) K/mcL Hgb 14.4 (11.5-15.4) g/dL Hct 44.6 (35.3-44.9) % Plt Count 297 (140-400) K/mcL Neutrophils # 9.7 H (1.6-8.9) K/mcL BMP 12/13/18 05:09 Sodium 143 Potassium 3.2 L Chloride 105 Carbon Dioxide 25 BUN 16 Creatinine 0.92 Glucose 191 H Calcium 10.0 - ABG Interpretation ABG results: ABG ABG pH 7.41 pH Units (7.32-7.45) 12/12/18 06:37 ABG pCO2 42 mmHg (35-45) 12/12/18 06:37 ABG pO2 92 mmHg (85-104) 12/12/18 06:37 ABG O2 Saturation 97 % (95-98) 12/12/18 06:37 - Impressions Impressions Head CT 12/13/18 09:00 IMPRESSION: 1. Stable CT scan of the brain with no acute intracranial abnormality. D/ / Luis Garcia MD / Luis Garcia MD Interpreting Provider: Luis Garcia MD Consult Discharge Plan - Plan Referrals: Damaris Boudreaux MD [Primary Care Provider] - Palliative Quality Palliative Quality: Screen for Code Status: Yes, Screen for Goals of Care: Yes, Screen for Pain: Yes, If Pain Regimen Started, Initiate Bowel Regimen: NA, Screen for Nausea/Vomitting: Yes Code Status: 12/11/18 18:46 Resuscitation Status: Active [RES] Routine Comment: Resuscitation Status: [id number]
[2018-12-13] MEDS: Potassium Chloride 20 MEQ in D5% in Water 1,000 ML IVC SCH (15:10)
--- NOTE | 2018-12-13 16:57 | Internal Med Progress Note ---
Hospitalist Progress Note - Encounter Date of Encounter: 12/13/18 Time of Encounter: 09:03 - Subjective Interval History: Patient seen at bedside. Worsening respiratory status. Discussed with the family at bedside regarding the patient's prognosis. Patient unable to provide any specific subjective assessment. - Exam Vitals: Temp Pulse Resp BP Pulse Ox 98.1 F 97 26 197/110 98 12/13/18 15:50 12/13/18 15:50 12/13/18 15:50 12/13/18 15:50 12/13/18 15:50 Exam: General: Mild distress. Unable to provide subjective assessment.. HEENT: No thyromegaly, no lymphadenopathy, no discharge. Eyes: No discharge. Respiratory: Normal vesicular breathing, no added sounds, breathing equal in both sides. CVS: Normal heart sounds, no murmurs, no edema. Extremities: No peripheral edema, peripheral pulses intact. Lymph nodes: No lymphadenopathy Gastrointestinal: Soft, nontender abdomen, normal abdominal sounds. No distention noted. Genitourinary: No paravertebral tenderness. Neurological: Unable to do the cause of the patient mental status.. - Assessment and Plan (1) Altered mental state Current Visit: Yes Status: Acute Assessment and Plan: Patient was transferred because of the concerns for acute stroke. CT scan did not show any hemorrhagic stroke. Neurology recommended MRI and MRA but the patient cannot get an MRI because of the previous right neck surgery and unclear history regarding foreign object. At this point, as per neurology recommendation patient is on rectal aspirin. Prognosis is guarded. Neurology on board. Appreciate recommendations. (2) Pneumonia Current Visit: Yes Status: Acute Assessment and Plan: CT scan evidence of right lower lobe pneumonia Patient is currently on Unasyn for the pneumonia. Prognosis is poor Patient is DNI as per family. Continue the patient on Unasyn for now. (3) Palliative care encounter Current Visit: Yes Status: Acute Assessment and Plan: Discussed with the palliative care over discussion with the family. Family does not want the patient to be intubated but they want the patient to be resuscitated in case of cardiac arrest. Discussed with the family that resusc itation in the absence of intubation is not favorable for the patient. Family understands the situation but still they want the patient to be resuscitated in case of cardiac arrest. We will discuss again tomorrow with the family. (4) Hypokalemia Current Visit: Yes Status: Acute Assessment and Plan: Likely etiology inability to take potassium. Add potassium with IV fluids Continue to monitor.. - Time Spent with Patient Total time spent is greater than 50% in coordination of care (as documented) at patient's floor/unit and/or counseling patient: Internal Medicine: Result - Labs CBC & Chem 7: 12/13/18 05:09 12/13/18 05:09 Labs: Short CBC 12/13/18 Range/Units 05:09 WBC 13.9 H (4.3-11.1) K/mcL Hgb 14.4 (11.5-15.4) g/dL Hct 44.6 (35.3-44.9) % Plt Count 297 (140-400) K/mcL Neutrophils # 9.7 H (1.6-8.9) K/mcL BMP 12/13/18 05:09 Sodium 143 Potassium 3.2 L Chloride 105 Carbon Dioxide 25 BUN 16 Creatinine 0.92 Glucose 191 H Calcium 10.0 - ABG Interpretation ABG results: ABG ABG pH 7.41 pH Units (7.32-7.45) 12/12/18 06:37 ABG pCO2 42 mmHg (35-45) 12/12/18 06:37 ABG pO2 92 mmHg (85-104) 12/12/18 06:37 ABG O2 Saturation 97 % (95-98) 12/12/18 06:37 - Impressions Impressions Head CT 12/13/18 09:00 IMPRESSION: 1. Stable CT scan of the brain with no acute intracranial abnormality. D/ / Luis Garcia MD / Luis Garcia MD Interpreting Provider: Luis Garcia MD Consult Discharge Plan - Plan Referrals: Damaris Boudreaux MD [Primary Care Provider] - ____ (1) Altered mental state Qualifiers: Altered mental status type: somnolence Qualified Code(s): R40.0 - Somnolence (2) Pneumonia Qualifiers: Pneumonia type: aspiration pneumonia Aspiration pneumonia type: unspecified Laterality: right Lung location: lower lobe of lung Qualified Code(s): J69.0 - Pneumonitis due to inhalation of food and vomit
[2018-12-13] MEDS ORDERED: *HR* LORazepam 2 MG/ML VIAL IVP PRN (16:59)
[2018-12-13] MEDS ORDERED: Morphine Sulfate Oral CONC 10 MG/0.5 ML ORAL.SYG SL PRN (16:59)
[2018-12-13] MEDS ORDERED: Glycopyrrolate 0.2 MG/ML VIAL IVP ONE (17:00)
[2018-12-14] MEDS: Ampicillin/Sulbactam 1,500 MG in 0.9 % Sodium Chloride Mini Bag 100 ML IVPB SCH ×3 (01:17→12:24)
[2018-12-14] MEDS: *HR* Metoprolol 5 MG/5 ML VIAL IVP SCH ×3 (01:21→12:25)
[2018-12-14] MEDS: Insulin LISPRO 300 UNITS/3 ML VIAL SQ SCH ×3 (01:21→12:25)
[2018-12-14] MEDS: Potassium Chloride 20 MEQ in D5% in Water 1,000 ML IVC SCH ×2 (04:50→12:24)
[2018-12-14] MEDS: Glycopyrrolate 0.2 MG/ML VIAL IVP PRN (12:11)
[2018-12-14] MEDS ORDERED: *HR* LORazepam 2 MG/ML VIAL IVP PRN (13:54)
--- NOTE | 2018-12-14 13:57 | Internal Med Progress Note ---
Hospitalist Progress Note - Encounter Date of Encounter: 12/14/18 Time of Encounter: 11:00 - Subjective Interval History: Patient seen at bedside. Patient was made comfort measures only after discussion with the family yesterday. Patient is currently looking comfortable. - Exam Vitals: Temp Pulse Resp BP Pulse Ox 98.8 F 65 24 151/76 100 12/14/18 07:02 12/14/18 08:26 12/14/18 07:02 12/14/18 07:02 12/14/18 07:02 Exam: General: Comfortable. Eyes: No discharge. Respiratory: Tachypneic bt comfortable. CVS: Normal heart sounds, no murmurs, no edema. Extremities: No peripheral edema, peripheral pulses intact. - Assessment and Plan (1) Altered mental state Current Visit: Yes Status: Acute Assessment and Plan: Patient was made [employer] yesterday. No further interventions. (2) Pneumonia Current Visit: Yes Status: Acute Assessment and Plan: Patient was made [employer]. Antibiotic stopped. (3) Palliative care encounter Current Visit: Yes Status: Acute Assessment and Plan: Palliative care on board. Patient is [employer]. CODE STATUS change. - Summary of Assessment and Plan Summary of Assessment and Plan: Pt was made [employer] after discussion with the family. Started on ativan, morphine with the intention to keep the pt comfortable. D/C any aggressive measures. Paperwork was filled. - Time Spent with Patient Total time spent is greater than 50% in coordination of care (as documented) at patient's floor/unit and/or counseling patient: Plan of Care Discussed with: family Internal Medicine: Result - Labs CBC & Chem 7: 12/13/18 05:09 12/13/18 05:09 - ABG Interpretation ABG results: ABG ABG pH 7.41 pH Units (7.32-7.45) 12/12/18 06:37 ABG pCO2 42 mmHg (35-45) 12/12/18 06:37 ABG pO2 92 mmHg (85-104) 12/12/18 06:37 ABG O2 Saturation 97 % (95-98) 12/12/18 06:37 Consult Discharge Plan - Plan Referrals: Damaris Boudreaux MD [Primary Care Provider] - (1) Altered mental state Qualifiers: Altered mental status type: somnolence Qualified Code(s): R40.0 - Somnolence (2) Pneumonia Qualifiers: Pneumonia type: aspiration pneumonia Aspiration pneumonia type: unspecified Laterality: right Lung location: lower lobe of lung Qualified Code(s): J69.0 - Pneumonitis due to inhalation of food and vomit
[2018-12-14] MEDS: Morphine Sulfate Oral CONC 10 MG/0.5 ML ORAL.SYG SL PRN (14:36)
[2018-12-15] MEDS: Morphine Sulfate Oral CONC 10 MG/0.5 ML ORAL.SYG SL PRN (05:15)
[2018-12-15] MEDS: Glycopyrrolate 0.2 MG/ML VIAL IVP PRN (05:49)
[2018-12-15 07:53] VITALS: BP 165/86
--- NOTE | 2018-12-15 11:09 | Palliative Progress Note ---
Date of Encounter: 12/15/18 Time of Encounter: 10:30 - Assessment and plan (1) Goals of care, counseling/discussion Status: Acute Assessment and plan: Patient was transitioned to [facility]. Met with son and [id number]. Discussed hospice care and philosophy. Family elected for hospice care at this time. Patient appears comfortable, family agrees with plan is for discharge back to [facility] today with [facility], so she can be closer to home. Discussed with primary hospitalist. (2) Dyspnea Status: Acute Assessment and plan: Improved, on 3L nc, sat 91%. Appears comfortable when asleep, but becomes tachypneic if aroused. Using Roxanol, ativan in place. Qualifiers: Dyspnea type: acute respiratory distress Qualified Code(s): R06.03 - Acute respiratory distress (3) Copious oral secretions Status: Acute Assessment and plan: improved with glycopyrrolate. Will place a scopolamine patch on discharge. (4) Palliative care encounter Status: Acute (5) Aphasia due to acute stroke Status: Acute (6) Altered mental state Status: Acute Qualifiers: Altered mental status type: somnolence Qualified Code(s): R40.0 - Somnolence - Time Spent With Patient Total time spent is greater than 50% in coordination of care (as documented) at patient's floor/unit and/or counseling patient: - Subjective Interval history: Pt appears lethargic, opens eyes to name calling, in no acute distress. Oxygen mask in place, received 2 doses of Roxanol 5mg in 24hrs. - Constitutional Vitals: Abnormal lab results WBC 13.9 K/mcL (4.3-11.1) H 12/13/18 05:09 Hct 45.3 % (35.3-44.9) H 12/12/18 06:28 9.7 K/mcL (1.6-8.9) H 12/13/18 05:09 ABG pO2 50 mmHg (85-104) L* 12/11/18 18:47 ABG HCO3 29 mEq/L (21-27) H 12/11/18 18:47 ABG Total CO2 28 mEq/L (20-26) H 12/12/18 06:37 ABG O2 Saturation 86 % (95-98) L 12/11/18 18:47 ABG Base Excess 4 mEq/L (-2 to 3) H 12/11/18 18:47 Potassium 3.2 mEq/L (3.5-5.1) L 12/13/18 05:09 Est GFR (Non-Af Amer) 50 (> 60) L 12/12/18 04:59 Glucose 191 mg/dL (70-105) H 12/13/18 05:09 POC Glucose 153 mg/dL (70-99) H 12/14/18 17:31 302 (280-300) H 12/13/18 05:09 Exam: Constitutional: lethargic, in no acute distress ENT : Oropharyngeal exam unremarkable. Rt neck scar, dry mucous membrane. Respiratory : coarse breath sound, no accessory muscle use. Cardiovascular : RRR, +S1, +S2. no murmur, gallop, rubs. No chest wall tenderness GI/Abdominal : Soft, Non-tender, Non-distended, no peritoneal signs. Musculoskeletal: Lt leg and arm spastic contracture, pulses palpable and symmetrical in UE/LE. Neurological: opened eye spontaneously, not following commands. Lt LE and UE spastic. Skin: No skin rash, lesions or ulcers noted. Palliative Quality Palliative Quality: Screen for Code Status: Yes, Screen for Goals of Care: Yes, Screen for Pain: Yes, If Pain Regimen Started, Initiate Bowel Regimen: NA, Screen for Nausea/Vomitting: Yes Code Status: 12/11/18 18:46 Resuscitation Status: Active [RES] Routine Comment: Resuscitation Status: [id number] 12/13/18 19:41 CODE [Resuscitation Status: Active] [RES] Routine Comment: D/W pt family Resuscitation Status: DNR-Comfort Care - Labs CBC & Chem 7: 12/13/18 05:09 12/13/18 05:09 Labs: Laboratory Results - last 24 hr 12/14/18 12/14/18 11:15 17:31 POC Glucose 181 H 153 H - ABG Interpretation ABG results: ABG ABG pH 7.41 pH Units (7.32-7.45) 12/12/18 06:37 ABG pCO2 42 mmHg (35-45) 12/12/18 06:37 ABG pO2 92 mmHg (85-104) 12/12/18 06:37 ABG O2 Saturation 97 % (95-98) 12/12/18 06:37 Palliative Scale - Palliative Performance Scale How ambulatory is this patient?: Totally bed bound What is patient's level of activity and evidence of disease?: Unable to do any activity, Extensive disease How much self-care assistance does patient require?: Total care How much oral intake does the patient have?: Mouth care only What is this patient's level of consciousness?: Full or drowsy with or without confusion Palliative Performance Score: 20 % Consult Discharge Plan - Plan Referrals: Damaris Boudreaux MD [Primary Care Provider] - Prescriptions: LORazepam [Ativan] 2 mg SL Q2H PRN 7 Days #30 tablet PRN Reason: Agitation LORazepam Oral Conc [Ativan Oral Conc] 1 mg PO Q4H 3 Days #15 mls Glycopyrrolate 1.5 mg PO Q12H PRN 7 Days #10 tablet PRN Reason: Secretions Morphine Sulfate Oral CONC [Roxanol Oral Conc] 10 mg ORAL RINSE Q3H PRN 7 Days #30 oral.syg PRN Reason: Dyspnea Scopolamine Patch [Transderm-Scop] 1.5 mg TD Q72H PRN 3 Days #2 patch.[id number] PRN Reason: Secretions
--- NOTE | 2018-12-15 11:22 | Discharge Summary ---
Date of Encounter: 12/15/18 Time of Encounter: 09:00 - Discharge Diagnosis (1) Altered mental state Priority: Primary Status: Acute Qualifiers: Altered mental status type: somnolence Qualified Code(s): R40.0 - Somnolence (2) Pneumonia Priority: Secondary Status: Acute Qualifiers: Pneumonia type: aspiration pneumonia Aspiration pneumonia type: unspecified Laterality: right Lung location: lower lobe of lung Qualified Code(s): J69.0 - Pneumonitis due to inhalation of food and vomit (3) Palliative care encounter Priority: Secondary Status: Acute Hospital course: Ms. Curry is a 73 year old female with a past medical history significant for diabetes, hypertension, CVA with residue left-sided paralysis, presented to the hospital because of altered mental status. There were also concerns of the pneumonia, aspiration. Patient did not have any hemorrhagic stroke on the CT, neurology recommended to get MRI but the patient could not get the MRI done because of the hardware in the neck. Patient mental status actually worsened over the course of days, patient's breathing status also worsened. Palliative care was consulted and after detailed discussion with the family, patient was made comfort measures only. All the medications and aggressive measures were discontinued and the patient was only given anxiolytics, analgesics for comfort measures. Patient is currently comfortable, family wants to transfer the patient back to the nursing facility with hospice care. - Time Spent with Patient Total time spent providing and/or coordinating discharge services: 45 minutes - Discharge Medications Prescriptions: New LORazepam [Ativan] 1 mg IVP Q30MIN PRN vial PRN Reason: Agitation Glycopyrrolate [Robinul] 0.2 mg IVP Q8H PRN vial PRN Reason: Secretions Morphine Sulfate Oral CONC [Roxanol Oral Conc] 5 mg SL Q2H PRN oral.syg PRN Reason: Dyspnea Discontinued Acetaminophen [Tylenol] 650 mg PO Q6HR PRN PRN Reason: pain or fever Dextran 70/Hypromellose/Pf [Artificial Tears Drops] 1 each OP Q4H PRN PRN Reason: Dry Eye(S) MOM Conc [Milk of Magnesia Conc] 30 ml PO DAILY PRN PRN Reason: Constipation Pantoprazole Sodium [Protonix] 20 mg PO DAILY Potassium Chloride [Klor-Con 10] 10 meq PO DAILY Amlodipine Besylate 10 mg PO DAILY Citalopram Hydrobromide [Citalopram HBr] 15 mg PO DAILY GlipiZIDE [Glucotrol] 5 mg PO BIDWM Metoprolol [Lopressor] 50 mg PO BID metFORMIN [Glucophage] 500 mg PO BIDWM Gabapentin [Neurontin] 300 mg PO TID Clopidogrel [Plavix] 75 mg PO DAILY Atorvastatin [Lipitor] 10 mg PO HS Ferrous Sulfate [Iron] 325 mg PO BID Cyanocobalamin (Vitamin B-12) [Vitamin B12] 1,000 mcg PO DAILY Cholecalciferol (Vitamin D3) [Vitamin D] 50,000 unit PO QWEEK Home Medications: Glycopyrrolate [Robinul] 0.2 mg IVP Q8H PRN vial 12/15/18 [Rx] LORazepam [Ativan] 1 mg IVP Q30MIN PRN vial 12/15/18 [Rx] Morphine Sulfate Oral CONC [Roxanol Oral Conc] 5 mg SL Q2H PRN oral.syg 12/15/18 [Rx] Allergies/Adverse Reactions: Allergy/AdvReac Type Severity Reaction Status Date / Time baclofen Allergy See Verified 12/11/18 20:05 Comments Date of admission: 12/11/18 18:58 Primary care physician: Damaris Boudreaux MD Consults: 12/12/18 06:09 Consult to Neurology [CONS] Routine Consulting Provider: Neurology [facility] Reason for Consult: stroke evaluation Call Completed: Yes 12/12/18 12:00 Consult to Interpret Exam [CONS] Routine Consulting Provider: Sharon Wilkinson I Consult to Interpret Exam: Interpret EEG 12/12/18 18:00 Consult to Palliative Care [CONS] Routine Comment: Consulting Provider: Palliative [facility] Reason for Consult: goals of care discussion, aspiration pneumonia Call Completed: No - Constitutional Vitals: Temp Pulse Resp BP Pulse Ox 99.2 F 101 22 165/86 90 12/15/18 07:45 12/15/18 07:45 12/15/18 07:45 12/15/18 07:45 12/15/18 07:45 Exam: General: Comfortable. Eyes: No discharge. Respiratory: Tachypneic bt comfortable. CVS: Normal heart sounds, no murmurs, no edema. Extremities: No peripheral edema, peripheral pulses intact. - Patient Status Disposition: Transfer SNF Condition: Critical Functional capacity at discharge: bed bound Overall status at discharge: patient is not back to baseline - Discharge Instructions Follow Up With: Damaris Boudreaux MD [Primary Care Provider] - - Diet and Activity Activity: other Diet: other (Pt is bedbound and NPO.Pt is [facility] hospice)
--- NOTE | 2018-12-15 11:30 | Physician Discharge Referral ---
Home Health/Hosp Referral Info Transfer to: Hospice (Pt being transferred to SNF with hospice care) - Diagnosis (1) Altered mental state Status: Acute (2) Pneumonia Priority: Secondary Status: Acute (3) Palliative care encounter Priority: Secondary Status: Acute - Respiratory Orders Smoking Cessation: Smoking cessation has been advised. For more information, call the [facility] Quit Line at 3-290-GYOK-NOW. - Transfer Medications Home Medications: Glycopyrrolate [Robinul] 0.2 mg IVP Q8H PRN vial 12/15/18 [Rx] LORazepam [Ativan] 1 mg IVP Q30MIN PRN vial 12/15/18 [Rx] Morphine Sulfate Oral CONC [Roxanol Oral Conc] 5 mg SL Q2H PRN oral.syg 12/15/18 [Rx] Allergies/Adverse Reactions: Allergy/AdvReac Type Severity Reaction Status Date / Time baclofen Allergy See Verified 12/11/18 20:05 Comments Certification: Further, I certify that my clinical findings support that this patient is homebound (i.e. absences from home require considerable and taxing effort and are for medical reasons or restorationism services or infrequently or short duration when for other reasons) because: Homebound Reason: Altered mental status requiring supervision when leaving home Attestation: My signature below is to certify that this patient is under my care and that I, or nurse practitioner, or a physician's team assistant working with me, has a [id number] encounter with this patient.
--- NOTE | 2018-12-20 16:16 | EEG/EMG/Oth Biometrics Report ---
EEG Procedure Report EEG Procedure: Routine EEG Procedure Note: This is a routine 21 channel digital EEG performed utilizing 10- 20 international electrode placement system. FINDINGS: Patient has a predominant waking background frequency that is average voltage 8 to 10 Hertz alpha activity in the posterior region, normal amplitude symmetrical over the both hemispheres reactive to eyes opening and closing record continued to show alpha activity intermixed with some theta off and on, significant asymmetry noted in the right frontal and temporal leads could be due to underlying lesion or mass effect no abnormal activity recorded, predominantly no evidence of any spike wave discharges or any lateralizing abnormalities, Photic stimulation did not produce any convulsive response. Intermittent EMG artifacts were noted. Stage II sleep was not achieved. Impression: Normal awake drowsy electroencephalogram. With the exception of some asymmetry that could be due to underlying mass effect or infarct clinical correlation with imaging studies are recommended, No epileptiform discharges or any other paroxysmal activities noted. ( Please note that normal EEG does not exclude the diagnosis of seizures or epilepsy, clinical correlation is suggested)
== END 2018-12-15 15:02 | DRG 178 ==
LOC: 3BNU → SUATTDRO 18:58 → 2NNU 19:45
PROVIDERS: ADMIT Internal Medicine Nephrology; ATTEND Internal Medicine